=== PATIENT | female | born 1950 | race Caucasian/White ===

== ENCOUNTER 2020-02-09 08:59 | Day surgery (SDC) | payer MEDICARE, BC ==
[2020-02-07 12:07] VITALS: BMI 27.4
[~2020-02-09 08:59] MED LIST: EPINEPHrine 0.3 MG in Ophthalmic Irrigation Solution 500 ML IRR SCH
[2020-02-09] MEDS ORDERED: PHENYLEPHRINE-NS 100 MCG/ML 10 ML SYRINGE ONE (09:51)
[2020-02-09] MEDS ORDERED: PROPOFOL 200 MG/20 ML VIAL ONE (09:51)
[2020-02-09] MEDS ORDERED: Maxitrol 0.1% Opth Oint 3.5 GM TUBE ONE (09:51)
[2020-02-09] MEDS ORDERED: Bupivacaine PF 0.75% SDV 10 ML ONE (09:51)
[2020-02-09] MEDS ORDERED: CEFAZOLIN 1 GM VIAL ONE (09:51)
[2020-02-09] MEDS ORDERED: Ondansetron PF 4 MG/2 ML Vial ONE (09:51)
[2020-02-09] MEDS ORDERED: Lidocaine 4% PF 5 ML AMP ONE (09:51)
[2020-02-09] MEDS ORDERED: Triamcinolone 40 MG/ML VIAL ONE (09:51)
[2020-02-09] MEDS ORDERED: Lidocaine 1% PF 5 ML VIAL ONE ×2 (09:51)
[2020-02-09] MEDS ORDERED: Cyclopentolate 1% Opth Drop 2 ML BOT ONE (11:35)
[2020-02-09] MEDS ORDERED: Phenylephrine 2.5% Ophth Soln 5 ML BOT ONE (11:35)
[2020-02-09] MEDS ORDERED: Fentanyl 100 MCG/2 ML VIAL ONE (11:36)
--- NOTE | 2020-02-10 13:31 | OP ---
DATE OF PROCEDURE: 02/09/2020 PREOPERATIVE DIAGNOSIS: Dislocated intraocular lens. POSTOPERATIVE DIAGNOSIS: Dislocated intraocular lens. PROCEDURE: Pars plana vitrectomy, intraocular lens exchange, left eye. ANESTHESIA: General endotracheal anesthesia. DESCRIPTION OF PROCEDURE: The patient was identified in the preoperative holding area. Appropriate informed consent for the planned surgical procedure on the left eye had been obtained. The patient was transported to the operative suite and appropriate cardiopulmonary monitoring was established. Local anesthesia was obtained using retrobulbar modified Van Lint lid block using 50:50 mixture of 4% lidocaine and 0.75% bupivacaine. The patient was prepped and draped in usual sterile manner for ophthalmic surgery on the left eye. Lid speculum was placed in the left eye and 25-gauge trocar was placed in the conjunctiva and sclera superotemporally, inferotemporally, and supranasally. Infusion line was placed inferotemporally. Light pipe and vitreous cutter inserted into the eye. Core vitrectomy was performed. One piece intraocular lens was noted to be sitting on the retinal surface. This was freed from vitreous attachments after posterior vitreous separation was created, and this was elevated and placed in the anterior chamber. The lens was then cut in half and removed from the eye via superior temporal clear corneal incision. MARIELLA [id number], 27.0 diopter lens was then folded and inserted into the eye and the haptics were fixated in place using the Yamane procedure. The lens was noted to clear corneal incision was closed with two 10-0 nylon sutures and the sclerotomy was sutured with 6-0 plain gut suture. Eye was noted to be retaining pressure well. Retrobulbar Kenalog sequential Ancef was placed. Antibiotic ointment was placed. The eye was patched and shielded. The patient was taken to postop recovery unit in good condition having suffered no immediate perioperative complications. The patient was instructed to keep patch shield on, avoid lifting or bending. Followup appointment with Dr. Corley. Job ID: [id number]
== END 2020-02-09 14:55 | disposition home or self-care (01) ==
LOC: SDC 08:59
PROVIDERS: ATTEND Ophthalmology Retina Specialist
PROC: 08T53ZZ Resection of Left Vitreous, Percutaneous Approach (ICD-10-PCS; principal; 2020-02-09)
PROC: 08PK3JZ Removal of Synthetic Substitute from Left Lens, Percutaneous Approach (ICD-10-PCS; 2020-02-09)
PROC: 08RK3JZ Replacement of Left Lens with Synthetic Substitute, Percutaneous Approach (ICD-10-PCS; 2020-02-09)
DX: T85.22XA Displacement of intraocular lens, initial encounter (principal); I10 Essential (primary) hypertension; E78.5 Hyperlipidemia, unspecified; M19.90 Unspecified osteoarthritis, unspecified site; Z79.1 Long term (current) use of non-steroidal anti-inflammatories (NSAID); Z79.84 Long term (current) use of oral hypoglycemic drugs; Z79.899 Other long term (current) drug therapy
CPT/HCPCS: 66986; 67036; V2632; J0171; J0690; J2001; J2405; J2704; J3010; J3301; J3490